=== PATIENT | female | born 1990 | race Caucasian/White ===

== ENCOUNTER 2019-07-15 09:02 | Outpatient (CLI) | payer OTHER, MEDICAID, SELFPAY ==
[2019-07-15 09:19] VITALS: BP 126/80; PULSE 90
[2019-07-15 09:20] VITALS: RESP 16; TEMP 36.8
[2019-07-15 09:28] VITALS: BMI 34.2
[2019-07-15 09:50] LABS: Basophils % 0.3 %; Eosinophils # 0.1 10^3/uL (0.0-0.8); Eosinophils % 0.8 %; Hematocrit 33.5 % (37.0-47.0); Lymphocytes # 1.5 10^3/uL (0.8-4.8); Lymphocytes % 14.4 %; Mean Corpuscular HGB Conc 32.8 g/dL (30.0-36.0); Mean Corpuscular Hemoglobin 31.7 pg (28.0-34.0); Mean Corpuscular Volume 96.5 fL (81-99); Mean Platelet Volume 10.7 fL (7.4-10.4); Monocytes # 0.8 10^3/uL (0.2-0.9); Monocytes % 7.2 %; Neutrophils # 8.1 10^3/uL (1.8-7.7); Neutrophils % 76.6 %; Nucleated Red Blood Cells % 0 %; Platelet Count 182 10^3/cmm (130-400); Red Blood Count 3.47 10^6/uL (4.1-5.3); Red Cell Distribution Width 12.9 % (12.1-15.1); White Blood Count 10.5 10^3/uL (4.0-10.0)
[2019-07-15 10:06] LABS: Alanine Aminotransferase 11 U/L (0-33); Albumin Level 3.8 g/dL (3.5-5.2); Alkaline Phosphatase 132 IU/L (35-105); Anion Gap 16.6 (5-19); Aspartate Amino Transferase 17 U/L (0-32); Blood Urea Nitrogen 8 mg/dL (6-20); Calcium 9.2 mg/dL (8.5-10.5); Carbon Dioxide 20 mmol/L (22-29); Chloride 101 mmol/L (98-107); Globulin 2.2 g/dL (1.3-4.6); Glomerular Filtration Rate 144.9 mL/min (90-130); Glucose 132 mg/dL (74-109); Potassium 3.6 mmol/L (3.5-5.1); Sodium 134 mmol/L (136-145); Total Bilirubin 0.3 mg/dL (0.15-1.2); Uric Acid 3.9 mg/dL (2.4-5.7)
[2019-07-15 10:07] LABS: Urine Creatinine 123 mg/dL (28-217); Urine Protein Random 15 mg/dL
[2019-07-15 10:11] VITALS: BP 0/0
[2019-07-15 10:12] VITALS: BP 121/68; PULSE 75
[2019-07-15 10:13] LABS: UPRO/UCREAT Ratio 0.12 mg/mg CR
[2019-07-15 10:22] VITALS: BP 121/68; PULSE 86; RESP 16; TEMP 36.8
== END 2019-07-15 10:20 | disposition home or self-care (01) ==
LOC: OPOB 09:12 → OBGYN 10:14 → OPOB 07-17 13:29
PROVIDERS: Family Provider Family Medicine; PCP Family Medicine; Visit Provider Family Medicine
DX: O36.8390 Maternal care for abnormalities of the fetal heart rate or rhythm, unspecified trimester, not applicable or unspecified (principal); Z3A.00 Weeks of gestation of pregnancy not specified
CPT/HCPCS: 36415; 59025; 80053; 82570; 84156; 84550; 85025; 99211; A9270

== ENCOUNTER 2019-07-19 15:00 | Outpatient (CLI) | payer OTHER, MEDICAID, SELFPAY ==
[2019-07-19] VITALS (7 sets, daily range): BP systolic 106–119; BP diastolic 65–76; PULSE 80–90; RESP 18; TEMP 36.4; BMI 34.2
--- NOTE | 2019-07-19 15:17 | US_ITS ---
WS: [id number] OB ultrasound for biophysical profile, 07/19/2019 Clinical Data: ELEVATED B/P Comparison: OB ultrasound, 03/18/2019 Findings: There is a single intrauterine in the vertex presentation. The heart rate is 126 beat s per minute. The cervical length is 4.2 and it is closed. The placenta is posterior and grade 2. The biophysical profile is 8 of 8 with normal scores for breathing, movement, posture and tone and amniotic fluid volume. US/US OB lmt w/ BPP wo NST Impression: 1. Single intrauterine in vertex presentation. 2. Biophysical profile 8 of 8. 3. heart rate 126 beats per minute.
== END 2019-07-19 16:15 | disposition home or self-care (01) ==
LOC: OPOB 15:04
PROVIDERS: Family Provider Family Medicine; PCP Family Medicine; Visit Provider Family Medicine
DX: O24.419 Gestational diabetes mellitus in pregnancy, unspecified control (principal); Z3A.00 Weeks of gestation of pregnancy not specified
CPT/HCPCS: 59025; 76815; 76819; 99211

== ENCOUNTER 2019-07-22 14:34 | Outpatient (CLI) | payer OTHER, MEDICAID, SELFPAY ==
[2019-07-22 15:02] VITALS: BP 118/70; BP 122/80; PULSE 83; PULSE 90; RESP 16; RESP 17; TEMP 36.8
--- NOTE | 2019-07-22 15:42 | PC.NURSE ---
Taken at 1441, unable to chart at correct time due to admission times incorrect
--- NOTE | 2019-07-22 16:30 | PC.NURSE ---
Taken at 1456. Unable to document at correct time due to admissions incorrect time.
[2019-07-22 16:35] VITALS: BMI 34.2
== END 2019-07-22 15:05 | disposition home or self-care (01) ==
LOC: OPOB 17:30
PROVIDERS: Family Provider Family Medicine; PCP Family Medicine; Visit Provider Family Medicine
DX: O16.9 Unspecified maternal hypertension, unspecified trimester (principal); Z3A.00 Weeks of gestation of pregnancy not specified
CPT/HCPCS: 59025; 99211

== ENCOUNTER 2019-07-25 09:41 | Outpatient (CLI) | payer OTHER, MEDICAID, SELFPAY ==
--- NOTE | 2019-07-25 10:12 | US_ITS ---
WS: [id number] ULTRASOUND OB LIMITED TECHNIQUE: Limited ultrasound examination of the fetus. CLINICAL INFORMATION: SUPERVISION OF HIGH RISK /GESTATIONAL HTN COMPARISON: July 19, 2019 FINDINGS: Cervix measures 4.0 CM Single interuterine gestation. presentation is vertex Placental location is posterior. Placenta grade: 2 heart rate 126 BPM. Normal MURTAZA 18.26 cm Gestational age 38 weeks 3 days Biophysical profile 8 out of 8. breathin movement: 2 tone: 2 Amniotic fluid: 2 IMPRESSION Normal biophysical profile 8 out of 8
== END 2019-07-25 09:42 | disposition home or self-care (01) ==
LOC: RAD 09:46
PROVIDERS: Family Provider Family Medicine; PCP Family Medicine; Visit Provider Family Medicine
DX: O09.93 Supervision of high risk pregnancy, unspecified, third trimester (principal); O13.9 Gestational [pregnancy-induced] hypertension without significant proteinuria, unspecified trimester
CPT/HCPCS: 76816; 76819

== ENCOUNTER 2019-07-26 09:20 | Outpatient (CLI) | payer OTHER, MEDICAID, SELFPAY ==
[2019-07-26 09:20] VITALS: BMI 34.2
[2019-07-26 09:47] VITALS: BP 119/74; PULSE 73
[2019-07-26 09:51] VITALS: RESP 16; TEMP 37
[2019-07-26 10:02] VITALS: BP 105/67; PULSE 70
[2019-07-26 10:12] VITALS: BP 105/67; PULSE 70; RESP 16; TEMP 37
== END 2019-07-26 10:10 | disposition home or self-care (01) ==
PROVIDERS: Family Provider Family Medicine; PCP Family Medicine; Visit Provider Family Medicine
DX: O16.9 Unspecified maternal hypertension, unspecified trimester (principal); Z3A.00 Weeks of gestation of pregnancy not specified
CPT/HCPCS: 59025

== ENCOUNTER 2019-07-29 06:10 | Inpatient (IN) | payer OTHER, MEDICAID, SELFPAY ==
[2019-07-29] VITALS (96 sets, daily range): BP systolic 0–140; BP diastolic 0–85; PULSE 58–83; RESP 16–17; TEMP 36.6–37; O2SAT 97–99; BMI 33.8
--- NOTE | 2019-07-29 06:42 | P.HP_ITS ---
Providers/Chief Complaint Admitting Physician: Babar Claire MD Primary Care Provider: Quoc Dwyer MD Chief Complaint: Induction History of Present Illness Mary Carmen Meraz is a 29 year old at 39.0 weeks gestation by LMP consistent with 8-week ultrasound. Her is complicated by smoking during first trimester, history of asthma, history of kidney stone, gestational hypertension without severe features. The patient presents to labor and delivery for a scheduled induction of labor secondary to elevating blood pressures. Her blood pressures have been in the 1 30s to 140s systolic over 80s to 90s diastolic. She is not had any headaches, flashes of light, nausea, vomiting, chest pains, shortness of breath, abdominal pain, leakage of fluid, vaginal bleeding, dysuria. In the clinic the patient's total urine protein 1 week ago was 290. Medications/Allergies Allergies Allergy/AdvReac Type Severity Reaction Status Date / Time No Known Allergies Allergy Verified 07/26/19 09:53 PFSH Acute PFSH: Statuses (acute, chronic, etc) shown below reflect problem list status as previously entered and may not be historically accurate Medical History (Updated 07/29/19 @ 06:44 by Babar Claire MD) History of asthma (Acute) History of kidney stones (Acute) Vitals/I&O/Wt Last Vital Signs Pulse 83 07/29/19 06:33 BP 140/83 07/29/19 06:33 Physical Exam Narrative: EXAM NARRATIVE: General: Alert and oriented x3 Eyes: Pupils equal round and reactive to light and accommodation Mouth: Mucous membranes moist, pharynx non-erythematous Cardiac: Regular rate and rhythm without murmurs Lungs: Clear to auscultation bilaterally without wheezes, crackles or rhonchi Abdomen: Soft, non-tender, fundus consistent with gestational age Extremities: Trace edema in the bilateral lower extremities A&P Additional A&P Information The patient is currently doing well at this time. She is 3 cm dilated with 50% effacement upon admission. The patient is having contractions every 5 to 7 minutes. heart tones are in the 140s with moderate variability and good accelerations with a category 1 tracing. Initial blood pressure is 140/83. The patient does not show any signs of severe features from gestational hypertension. We will watch for any signs of complications with elevating blood pressures. We will plan to induce using IV Pitocin. The patient is GBS negative. All questions were answered. The patient and her are in agreement with the current plan of care. Proceed with induction of labor scheduled. Attestations Medical Necessity Statement*: The patient will be here for greater than 2 midnights due to routine intrapartum and management of labor and delivery. Coding Level of Care Code Acute Instructional Support Assistant for Trish Dubose
[2019-07-29] MEDS: oxytocin 30 UNIT/500 ML BAG 4 UNIT IV (07:45)
[2019-07-29] MEDS: dextrose 5%-lactated ringers 1,000 ML 125 ML IV (07:45)
[2019-07-29 07:54] LABS: Basophils % 0.1 %; Eosinophils # 0.1 10^3/uL (0.0-0.8); Eosinophils % 1.1 %; Hematocrit 32.7 % (37.0-47.0); Hemoglobin 10.8 g/dL (11.5-15.3); Lymphocytes # 1.9 10^3/uL (0.8-4.8); Lymphocytes % 22.1 %; Mean Corpuscular Hemoglobin 31.4 pg (28.0-34.0); Mean Corpuscular Volume 95.1 fL (81-99); Mean Platelet Volume 11.1 fL (7.4-10.4); Monocytes # 0.7 10^3/uL (0.2-0.9); Monocytes % 8.1 %; Neutrophils # 5.7 10^3/uL (1.8-7.7); Neutrophils % 67.3 %; Nucleated Red Blood Cells % 0 %; Platelet Count 175 10^3/cmm (130-400); Red Blood Count 3.44 10^6/uL (4.1-5.3); Red Cell Distribution Width 12.7 % (12.1-15.1); White Blood Count 8.4 10^3/uL (4.0-10.0)
[2019-07-29] MEDS: lactated ringers 1,000 ML 999 ML IV ×3 (12:01→14:24)
--- NOTE | 2019-07-29 13:37 | P.ANESASSM_ITS ---
Pre-Anesthetic Assessment Pre-Anesthetic Assessment: Height/Weight: Height 1.57 m Weight 83.915 kg Pulse Resp BP Pulse Ox 62 17 119/67 98 07/29/19 13:35 07/29/19 07:00 07/29/19 13:35 07/29/19 13:23 Preop Diagnosis: IUP Proposed Procedure: Epidural Last Intake: 08:00 Social: Social History: No alcohol and No tobacco Exam: Pre-Anes Outpt Exam: alert, oriented x 3, clear to auscultation bilaterally and regular rate & rhythm Airway: Submandibular: WNL Cervical ROM: WNL MP: 2 Dentition: Full History/ROS: No significant history except as noted and No significant complaints Pulmonary: Pulmonary: Asthma CV/HEM: CV/HEM: None reported : : None reported Hepatic: Hepatic: None reported GI: GI: None reported Metabolic: Metabolic: None reported Musc/skel: Musc/skel: None reported Neuropsych: Neuropsych: None reported Anesthetic Plan: ASA status: 2 Anesthesia: Anesthesia Evaluation and Regional (specify below) Other: Epidural Risk of > 500 ml blood loss (7ml/kg in children): No Meds/Allergies Current Medications: Current Medications Generic Name Dose Route Start Last Admin Trade Name Freq PRN Reason Stop Dose Admin Lactated Ringer's 1,000 mls @ 999 m ls/hr 07/29/19 06:48 07/29/19 12:01 Lactated Ringers IV 999 mls/hr .Q1H1M PRN Administration Per L&D Rescitati on Protocol Oxytocin 30 unit in 500 ml s @ 1 mls/hr 07/29/19 07:00 07/29/19 10:17 Pitocin IV 20 milliunit/min .Q24H DEVYN 20 mls/hr Titration Protocol 1 MILLIUNIT/MIN Dextrose/Lactated Ringer's 1,000 mls @ 125 m ls/hr 07/29/19 07:00 07/29/19 07:45 Dextrose 5%-Lact ated Ringers IV 125 mls/hr .Q8H DEVYN Administration PFSH Anesthesia PFSH: Medical History (Updated 07/29/19 @ 06:44 by Babar Claire MD) History of asthma (Acute) History of kidney stones (Acute) Female Reproductive History: : 3 Data Anesthesia CBC & Chem 7: 07/29/19 07:44 Other Labs: Laboratory Results - last 48 hr 07/29/19 07:44 WBC 8.4 RBC 3.44 L Hgb 10.8 L Hct 32.7 L MCV 95.1 MCH 31.4 MCHC 33.0 RDW 12.7 Plt Count 175 MPV 11.1 H Neut % (Auto) 67.3 Lymph % (Auto) 22.1 Blanco % (Auto) 8.1 Eos % (Auto) 1.1 Baso % (Auto) 0.1 Neut # (Auto) 5.7 Lymph # (Auto) 1.9 Blanco # (Auto) 0.7 Eos # (Auto) 0.1 Baso # (Auto) 0.0 Nucleated RBC % (auto) 0 Nucleated RBCs # 0.0 Cardiac Studies: No Data to Display
--- NOTE | 2019-07-29 13:41 | ANES.PROC ---
Anesthesia Procedures Procedure/Date: 07/29/19 Epidural: Time Out Performed: Yes Consents Signed: Procedure Consent and No Consent Needed Consent: requested by attending/covering physician Lumbar Level: L2-L3 Epidural position: sitting Epidural procedure: sterile prep of area, 1% lidocaine to numb the area, 18 g needle, neg for paresthesia, test dose given, 1.5% xylocaine 1:200k epi, placed PCEA, no systemic response, sterile dressing applied, L.U.D. no apparent complications and 0.2% Ropiavacaine @ mls/hr Additional Comments: 1326 Bolus Bupiv 0.25% 8 cc and Fentanyl 100 mcg. Patient tolerated well
[2019-07-29] MEDS: ePHEDrine 50 mg/mL Inj 10 MG IVP (14:23)
[2019-07-29] MEDS: ondansetron 2 mg/ML SDV 2 mL 4 MG IVP (14:29)
--- NOTE | 2019-07-29 18:15 | P.PCNOB_ITS ---
Delivery Note: Date of delivery: July 29, 2019 Pre-delivery diagnoses: 1. Intrauterine at 39.0 weeks gestation 2. Gestational hypertension without severe features 3. Smoker during 4. History of asthma Post-delivery diagnoses: 1. Intrauterine status post spontaneous vaginal delivery at 39.0 weeks gestation 2. Gestational hypertension without severe features 3. Smoker during 4. History of asthma 5. Delivery of healthy male weighing 7 pounds 2 ounces with Apgars of 8 and 9 Procedure: Spontaneous vaginal delivery Op report anesthesia: Epidural Delivering Physician: Babar Claire MD Estimated blood loss (mL): 150 Findings: 1. Delivery of healthy male weighing 7 pounds 2 ounces with Apgars of 8 9 2. Intact placenta with a central umbilical cord insertion site. Pre-Delivery Course: The patient was admitted to labor and delivery on the morning of 07/29/2019 for induction of labor at 39.0 weeks secondary to gestational hypertension. The patient was 3 cm dilated upon admission and was started on IV Pitocin. The patient made gradual change with this and stalled out at approximately 5 to 6 cm. For this reason AROM was performed at 1608 on 07/29/2019. There was an abundant amount of clear fluid. The patient continued to make change at that point and was complete by approximately 1740. There were some intermittent late decelerations and these were improved with fluid boluses, position changes and 1 dose of ephedrine after her epidural. Delivery: The mother began pushing at 1749 on 07/29/2019. She pushed well and the infant delivered in the OA position at 1751 on 07/29/2019. A tight nuchal cord was present. It could not be reduced easily and the was coming quickly. The left shoulder was the anterior shoulder and it delivered with ease. Rest of the infant delivered without complication. The nuchal cord was reduced and the 's mouth and nose were bulb suctioned by myself. The infant was placed on the mother's chest where the nurses were waiting to care for him. The cord was clamped by myself after approximately 1 minute. The cord was then cut by the 's father. Cord blood was obtained and the cord was then drained of blood. The uterus was massaged and the placenta delivered without complication at 1755 on 07/29/2019. The placenta was noted to be intact with a central umbilical cord insertion site. The cervix was inspected and there were no lacerations. The vaginal wall was inspected and there was a small abrasion in the perineal area that was not bleeding and did not need suturing. There was some mild to moderate bleeding initially, however with uterine massage and IV Pitocin this has improved. Currently both the mother and are doing very well. Coding Level of Care Code Acute Market Research Worker for Trish Dubose
[2019-07-30 01:50] VITALS: BP 114/72; PULSE 71; RESP 16; O2SAT 98
[2019-07-30] MEDS: acetaminophen 325 mg Tablet 650 MG PO (02:00)
--- NOTE | 2019-07-30 02:29 | PC.NURSE ---
PATIENT REPORTS PAIN AT 1 ON 1-10 PAIN SCALE AFTER RECEIVING TYLENOL
[2019-07-30 03:50] VITALS: BP 119/78; PULSE 70; RESP 16; TEMP 36.8
[2019-07-30 06:53] LABS: Hematocrit 29.2 % (37.0-47.0); Hemoglobin 9.5 g/dL (11.5-15.3); Mean Corpuscular HGB Conc 32.5 g/dL (30.0-36.0); Mean Corpuscular Volume 92.1 fL (81-99); Mean Platelet Volume 10.5 fL (7.4-10.4); Platelet Count 155 10^3/cmm (130-400); Red Blood Count 3.17 10^6/uL (4.1-5.3); Red Cell Distribution Width 12.6 % (12.1-15.1); White Blood Count 9.3 10^3/uL (4.0-10.0)
[2019-07-30 08:23] VITALS: BP 123/76; PULSE 76; RESP 15
[2019-07-30] MEDS: benzocaine-menthol 78 gm Canister 1 SPRAY TOPICAL (09:33)
[2019-07-30] MEDS: lanolin oint 7 gm 1 APPLIC TOPICAL (09:34)
[2019-07-30] MEDS: prenatal vitamin Capsule 1 CAP PO (09:34)
[2019-07-30] MEDS: docusate sodium 100 mg Capsule PO ×2 (09:34→18:51)
--- NOTE | 2019-07-30 09:40 | PM.DCS ---
Discharge Providers Date of Admission: 07/29/19 06:10 Date of Discharge: Date of Discharge: July 30, 2019 Attending Provider at Admission: Babar Claire MD Attending Provider at Discharge: Babar Claire MD Primary Care Provider: Quoc Dwyer MD Diagnoses at Discharge Discharge Diagnosis (1) Intrauterine : Status: Acute Other Information Additional DC diagnoses/information: 1. Intrauterine status post spontaneous vaginal delivery at 39.0 weeks gestation 2. Gestational hypertension without severe features 3. Smoker during 4. History of asthma 5. Delivery of healthy male weighing 7 pounds 2 ounces with Apgars of 8 and 9 Reason for Visit Reason for Visit: Reason For Visit: Induction Hospital Course Hospital Course: Pre-Delivery Course: The patient was admitted to labor and delivery on the morning of 07/29/2019 for induction of labor at 39.0 weeks secondary to gestational hypertension. The patient was 3 cm dilated upon admission and was started on IV Pitocin. The patient made gradual change with this and stalled out at approximately 5 to 6 cm. For this reason AROM was performed at 1608 on 07/29/2019. There was an abundant amount of clear fluid. The patient continued to make change at that point and was complete by approximately 1740. There were some intermittent late decelerations and these were improved with fluid boluses, position changes and 1 dose of ephedrine after her epidural. Delivery: The mother began pushing at 1749 on 07/29/2019. She pushed well and the infant delivered in the OA position at 1751 on 07/29/2019. A tight nuchal cord was present. It could not be reduced easily and the was coming quickly. The left shoulder was the anterior shoulder and it delivered with ease. Rest of the delivered without complication. The nuchal cord was reduced and the 's mouth and nose were bulb suctioned by myself. The was placed on the mother's chest where the nurses were waiting to care for him. The cord was clamped by myself after approximately 1 minute. The cord was then cut by the 's father. Cord blood was obtained and the cord was then drained of blood. The uterus was massaged and the placenta delivered without complication at 1755 on 07/29/2019. The placenta was noted to be intact with a central umbilical cord insertion site. The cervix was inspected and there were no lacerations. The vaginal wall was inspected and there was a small abrasion in the perineal area that was not bleeding and did not need suturing. There was some mild to moderate bleeding initially, however with uterine massage and IV Pitocin this has improved. Currently both the mother and are doing very well. course: The patient is doing very well and has had no complications with bleeding. Her pain is been well controlled. She is ambulating, voiding, passing gas and tolerating food by mouth. She has no concerns and routine care instructions were given. The patient will be discharged today and we will plan for follow-up at 6 weeks or sooner if needed. Physical Exam Narrative: EXAM NARRATIVE: General: Alert and oriented x3 Cardiac: Regular rate and rhythm without murmurs Lungs: Clear to auscultation bilaterally without wheezes, crackles or rhonchi Abdomen: Soft, uterus is firm and 4 cm below the umbilicus. Extremities: trace edema Discharge Data Data Completed and Pending: Labs from last 24 hours 07/30/19 06:40 WBC 9.3 RBC 3.17 L Hgb 9.5 L Hct 29.2 L MCV 92.1 MCH 30.0 MCHC 32.5 RDW 12.6 Plt Count 155 MPV 10.5 H Vitals: Last Vital Signs Temp 98.3 F 07/30/19 03:50 Pulse 76 07/30/19 08:23 Resp 15 07/30/19 08:23 BP 123/76 07/30/19 08:23 Pulse Ox 98 07/30/19 01:50 Discharge Plan Discharge Patient Disposition: Home, Self-Care Condition: Good Prescriptions: New ibuprofen 800 mg Tablet 800 mg PO TID Qty: 60 RF: 0 -U 106.5-1 mg Capsule 1 cap PO DAILY Qty: 30 RF: 3 ferrous sulfate 325 mg (65 mg iron) tablet 325 mg PO BID Qty: 30 RF: 0 Discharge Orders: Discharge Order (Routine); Ordered 07/30/19 Ordered By: Babar Claire Referrals: Sukumar Holguin MD [Physician] - 6 Weeks (Colposcopy) Babar Claire MD [Family Provider] - 6 Weeks Discharge Diet: Regular Discharge Activity: Resume usual activity Activity Restrictions/Additional Instructions: Nothing per vagina for 6 weeks. Discharge Attestations Time Spent in Discharge Care*: less than 30 min Quality Metrics Clinical Quality Measures During this hospital stay, did patient experience: None Coding Level of Care Code Acute Paper Guillotine Operator for Chg Fwd Diagnoses Intrauterine Z34.90
[2019-07-30 09:41] VITALS: BP 110/75; PULSE 73; RESP 17; TEMP 36.6
[2019-07-30 15:47] VITALS: BP 115/76; PULSE 66; RESP 17; TEMP 37.1
[2019-07-30 20:00] VITALS: BP 113/76; PULSE 71; RESP 16; TEMP 36.8
== END 2019-07-30 20:05 | disposition home or self-care (01) | DRG 807 ==
PROVIDERS: Admitting Provider Family Medicine; Family Provider Family Medicine; PCP Family Medicine; Visit Provider Family Medicine
DX: O13.4 Gestational [pregnancy-induced] hypertension without significant proteinuria, complicating childbirth (principal); Z37.0 Single live birth; Z3A.39 39 weeks gestation of pregnancy; O99.334 Smoking (tobacco) complicating childbirth; F17.210 Nicotine dependence, cigarettes, uncomplicated; O69.81X0 Labor and delivery complicated by cord around neck, without compression, not applicable or unspecified
CPT/HCPCS: 12345; 36415; 51702; 59409; 85025; 85027; 96374; 96375; J2405; J3010; J3490

== ENCOUNTER → 2019-09-27 08:48 | Outpatient (BNVA) | payer OTHER, MEDICAID, SELFPAY | PROVIDERS: Family Provider Family Medicine; PCP Family Medicine; Visit Provider Obstetrics & Gynecology | DX: R87.619 Unspecified abnormal cytological findings in specimens from cervix uteri (principal) | CPT/HCPCS: 81025; 88175 ==

== ENCOUNTER → 2019-09-28 09:20 | Outpatient (BNVA) | payer OTHER, MEDICAID, SELFPAY | PROVIDERS: Family Provider Family Medicine; PCP Family Medicine; Visit Provider Obstetrics & Gynecology | DX: R87.619 Unspecified abnormal cytological findings in specimens from cervix uteri (principal) | CPT/HCPCS: 88305 ==

== ENCOUNTER 2020-05-15 09:37 | Emergency (ER) | payer MEDICAID, SELFPAY ==
[2020-05-15 09:45] VITALS: BP 122/78; PULSE 76; RESP 16; TEMP 36.8; O2SAT 100; BMI 28.3
[2020-05-15 09:51] VITALS: PULSE 78; RESP 16; O2SAT 95
--- NOTE | 2020-05-15 10:01 | XR_ITS ---
WS: [id number] PORTABLE CHEST HISTORY: syncope COMPARISON: None available. Lungs are clear and well expanded. No pleural effusion or pneumothorax. Cardiac size: Normal. Mediastinum/Aorta: Normal mediastinum. No osseous abnormality seen. XR/XR chest 1V portable [id number] IMPRESSION: Unremarkable portable chest.
--- NOTE | 2020-05-15 10:01 | W.ED.CHESTPA ---
HPI - Chest Pain General: Chief Complaint: Chest Pain Stated Complaint: chest pain Time Seen by Provider: 05/15/20 09:41 Source: patient Mode of arrival: ambulatory Limitations: no limitations History of Present Illness: HPI narrative: Pleasant 29-year-old female patient presents to the emergency department with 2-day history of sharp pain to the central chest. She reports that pain started yesterday, sudden onset, was at rest when occurred. Pain is not affiliated with eating or drinking. She denies fever chills, no recent surgeries. She is a smoker. She denies deviation of cough from baseline. She reports sharp pain with inspiration, located in the central chest. She she reports history of preeclampsia with , delivery normal and uneventful July 2019. She denies pain of the right shoulder, pain with movement. She was seen by her primary care yesterday with suggestion rib may have been out of place and to seek further follow-up if pain persisted. States took ibuprofen this morning, pain scale 10/10; pain is 7 out of 10 currently. MD complaint: chest pain and chest discomfort Onset (ago): day(s) (2) Timing of current episode: constant Prior episodes: No Onset: during rest and awoke with symptoms Pain location: parasternal Pain radiation: back Severity: moderate Quality: sharp and shooting Relieving factors: nothing Exacerbating factors: nothing Associated symptoms: Reports dyspnea (with inspiration); Deny abdominal pain, diaphoresis, fever(s), nausea, palpitations or vomiting Treatment prior to arrival: other (IBU) Review of Systems General: Reports: 10 or more systems reviewed and unremarkable except in HPI and below Const: Denies: fever(s), chills or diaphoresis Eyes: Denies: blurry vision or eye redness ENMT: Denies: throat pain, dental pain or disequilibrium Card: Reports: chest pain; Denies: palpitations or irregular heart rhythm Resp: Reports: dyspnea (with inspiration) and pain on inspiration; Denies: productive cough, non-productive cough, wheezing or chest congestion GI: Denies: abdominal pain, nausea, vomiting, heartburn, diarrhea, belching or excessive flatus : Denies: difficulty voiding or dysuria Musc: Reports: back pain; Denies: neck pain, joint pain, joint warmth or joint stiffness Skin/Breast: Denies: rash, pruritus, skin tenderness or changes in skin color Neuro: Denies: headache(s), weakness in extremities or behavioral changes Psych: Denies: anxiety or depression Ignacio/Lymph: Denies: easy bruising PFSH ED PFSH: Medical History (Updated 05/15/20 @ 11:36 by JERRY Mccord) No pertinent past medical history Patient denies history of PE/DVT/clotting disorders, lung, liver heart, thyroid, kidney disease, hypertension or diabetes. PCP Dr. Dwyer Surgical History H/O myringotomy As an infant Family History Denies family history of Colon cancer Ovarian cancer Diabetes Heart disease Hyperlipidemia Breast cancer Hypertension Uterine cancer Thyroid condition Stroke Social History (Updated 05/15/20 @ 09:52 by Paul Gorman RN) Smoking and tobacco status: light tobacco smoker Alcohol intake: never Additional social history: - Tobacco Use: Patient started smoking at age 16 and smoked 5-6 cigarettes daily until she found out she was and started cutting back. Currently smoking 1-2 cigarettes daily. Alcohol Use: Denies Drug Use: Denies Work/Study Status: Stay at home mother Physical Exam Const: COMMON NORMALS: no acute distress, patient oriented x3, healthy appearing and alert GENERAL APPEARANCE: cooperative, comfortable and well hydrated HENMT: COMMON NORMALS: normocephalic, Normal external nose present and moist oral mucous membranes HEAD & SCALP: normocephalic NOSE: Normal external nose present Eye: COMMON NORMALS: Equal, round and reactive pupils present and EOMs intact bilaterally GENERAL EYE: appearance normal, both eyes and all related structures PUPIL: Yes Equal, round and reactive pupils present Neck/C-Spine: COMMON NORMALS: full ROM and no lymphadenopathy GENERAL: Yes normal visual inspection and Yes trachea midline CERVICAL SPINE: Yes cervical ROM normal Lymph: LYMPHATIC: no lymphadenopathy noted Chest: COMMONS NORMALS: normal inspection of the chest and normal palpation of entire chest wall CHEST: No localized rib tenderness with anteroposterior compression Resp: COMMON NORMALS: normal respiratory effort, No retractions, No use of accessory muscles and clear to auscultation bilaterally EFFORT & INSPECTION: Yes able to speak in complete sentences AUSCULTATION: clear to auscultation bilaterally and diminished lung sounds on the right in the upper lung hodges Cardio: COMMON NORMALS: regular rhythm, S1 normal heart sound present, S2 normal heart sound present and Peripheral pulses 2+ throughout RHYTHM: regular rhythm HEART SOUNDS: S1 normal heart sound present and S2 normal heart sound present PERIPHERAL PULSES: Peripheral pulses 2+ throughout GI: COMMON NORMALS: Normal to inspection, nondistended, normoactive bowel sounds present, Soft to palpation and non-tender INSPECTION: Yes normal to inspection AUSCULTATION: Yes normoactive bowel sounds PALPATION: Yes Soft to palpation, No Hepatosplenomegaly present, No Rebound tenderness present and Yes Other GI palpation findings present (Negative Wolf's, negative McBurney's) : COMMON NORMALS: Yes no CVA tenderness BLADDER/KIDNEY EXAM: Yes no CVA tenderness Back/Pelvis: COMMON NORMALS: no CVA tenderness and thoracic and lumbar spine normal to inspection Extremity: COMMON NORMALS: normal to inspection and capillary refill normal Neuro: COMMON NORMALS: patient oriented x3 and no focal motor deficits SENSORIUM/ORIENTATION: Yes alert SPEECH: speech normal GAIT: Yes Normal gait present MOTOR EXAM: 5/5 motor strength present throughout Psych: COMMON NORMALS: mental status grossly normal, Normal thought process present and cooperative ACTIVITY/MOTOR BEHAVIOR: Yes appropriate eye contact THOUGHT PROCESS: Normal thought process present Skin: COMMON NORMALS: no rashes or lesions noted and turgor normal GENERAL SKIN EXAM: no rashes or lesions noted and turgor normal Course ED course: 29-year-old female patient presents to the emergency department with complaints of sharp pain with inspiration. Troponin negative, ECG without acute process, white blood count slightly elevated, CRP and ESR elevated. Procalcitonin low. Reports use of methylprednisone several months ago and has never quite gotten over cough and congestion, respiratory illness she experienced then. She continues to smoke, question chronic bronchitis, will test for Covid due to elevation of inflammatory markers, agrees to initiate Augmentin if Covid testing negative. Agrees to return to the emergency department if she develops increased chest pain associated with nausea vomiting or inability to catch her breath. She reports history of albuterol use in the past. Agrees to follow-up with her primary care provider next week if not improved. Vital Signs: Vital signs: Vital Signs Temperature 98.3 F 05/15/20 09:45 Pulse Rate 78 05/15/20 09:51 Respiratory Rate 16 05/15/20 10:18 Blood Pressure 122/78 05/15/20 09:45 Pulse Oximetry 97 05/15/20 10:18 MDM - Chest Pain Lab Data: Labs: Lab Results 05/15/20 05/15/20 05/15/20 Range/Units 09:57 09:57 09:57 WBC 13.0 H (4.0-10.0) 10^3/ uL RBC 4.47 (4.1-5.3) 10^6/u L Hgb 13.6 (11.5-15.3) g/dL Hct 42.1 (37.0-47.0) % MCV 94.2 (81-99) fL MCH 30.4 (28.0-34.0) pg MCHC 32.3 (30.0-36.0) g/dL RDW 13.4 (12.1-15.1) % Plt Count 236 (130-400) 10^3/c mm MPV 10.3 (7.4-10.4) fL Neut % (Auto) 72.3 % Lymph % (Auto) 17.2 % Newberry % (Auto) 9.6 % Eos % (Auto) 0.2 % Baso % (Auto) 0.4 % Neut # (Auto) 9.36 H (1.8-7.7) 10^3/u L Lymph # (Auto) 2.2 (0.8-4.8) 10^3/u L Newberry # (Auto) 1.3 H (0.2-0.9) 10^3/u L Eos # (Auto) 0.0 (0.0-0.8) 10^3/u L Baso # (Auto) 0.1 (0.0-0.1) 10^3/u L Nucleated RBC % (a uto) 0 % Nucleated RBCs # 0.0 /100WBC ESR (0-15) mm/hr D-Dimer 0.29 (0-0.59) ug/mIFE U Sodium 140 (136-145) mmol/L Potassium 3.8 (3.5-5.1) mmol/L Chloride 105 (98-107) mmol/L Carbon Dioxide 21 L (22-29) mmol/L Anion Gap 17.8 (5-19) BUN 17 (6-20) mg/dL Creatinine 0.6 (0.5-0.9) mg/dL GFR Calculation 117.4 (90-130) mL/min Glucose 111 (65-115) mg/dL Calculated Osmolal ity 292 (285-295) mOsm/k g Calcium 9.3 (8.5-10.5) mg/dL Total Bilirubin 0.9 (0.15-1.2) mg/dL AST 13 (0-32) U/L ALT 10 (0-33) U/L Alkaline Phosphata se 80 (35-105) IU/L Troponin T Baselin e (0-10) ng/L C-Reactive Protein 51.4 H (0.0-4.9) mg/L Total Protein 7.2 (6.6-8.7) g/dL Albumin 4.6 (3.5-5.2) g/dL Globulin 2.6 (1.3-4.6) g/dL Lipase 14 (13-60) U/L Procalcitonin (0-0.5) ng/mL HCG, Qual (Negative) 05/15/20 05/15/20 05/15/20 Range/Units 09:57 09:57 09:57 WBC (4.0-10.0) 10^3/ uL RBC (4.1-5.3) 10^6/u L Hgb (11.5-15.3) g/dL Hct (37.0-47.0) % MCV (81-99) fL MCH (28.0-34.0) pg MCHC (30.0-36.0) g/dL RDW (12.1-15.1) % Plt Count (130-400) 10^3/c mm MPV (7.4-10.4) fL Neut % (Auto) % Lymph % (Auto) % Newberry % (Auto) % Eos % (Auto) % Baso % (Auto) % Neut # (Auto) (1.8-7.7) 10^3/u L Lymph # (Auto) (0.8-4.8) 10^3/u L Newberry # (Auto) (0.2-0.9) 10^3/u L Eos # (Auto) (0.0-0.8) 10^3/u L Baso # (Auto) (0.0-0.1) 10^3/u L Nucleated RBC % (a uto) % Nucleated RBCs # /100WBC ESR 18 H (0-15) mm/hr D-Dimer (0-0.59) ug/mIFE U Sodium (136-145) mmol/L Potassium (3.5-5.1) mmol/L Chloride (98-107) mmol/L Carbon Dioxide (22-29) mmol/L Anion Gap (5-19) BUN (6-20) mg/dL Creatinine (0.5-0.9) mg/dL GFR Calculation (90-130) mL/min Glucose (65-115) mg/dL Calculated Osmolal ity (285-295) mOsm/k g Calcium (8.5-10.5) mg/dL Total Bilirubin (0.15-1.2) mg/dL AST (0-32) U/L ALT (0-33) U/L Alkaline Phosphata se (35-105) IU/L Troponin T Baselin e 6 (0-10) ng/L C-Reactive Protein (0.0-4.9) mg/L Total Protein (6.6-8.7) g/dL Albumin (3.5-5.2) g/dL Globulin (1.3-4.6) g/dL Lipase (13-60) U/L Procalcitonin (0-0.5) ng/mL HCG, Qual Negative (Negative) 05/15/20 Range/Units 09:57 WBC (4.0-10.0) 10^3/ uL RBC (4.1-5.3) 10^6/u L Hgb (11.5-15.3) g/dL Hct (37.0-47.0) % MCV (81-99) fL MCH (28.0-34.0) pg MCHC (30.0-36.0) g/dL RDW (12.1-15.1) % Plt Count (130-400) 10^3/c mm MPV (7.4-10.4) fL Neut % (Auto) % Lymph % (Auto) % Newberry % (Auto) % Eos % (Auto) % Baso % (Auto) % Neut # (Auto) (1.8-7.7) 10^3/u L Lymph # (Auto) (0.8-4.8) 10^3/u L Newberry # (Auto) (0.2-0.9) 10^3/u L Eos # (Auto) (0.0-0.8) 10^3/u L Baso # (Auto) (0.0-0.1) 10^3/u L Nucleated RBC % (a uto) % Nucleated RBCs # /100WBC ESR (0-15) mm/hr D-Dimer (0-0.59) ug/mIFE U Sodium (136-145) mmol/L Potassium (3.5-5.1) mmol/L Chloride (98-107) mmol/L Carbon Dioxide (22-29) mmol/L Anion Gap (5-19) BUN (6-20) mg/dL Creatinine (0.5-0.9) mg/dL GFR Calculation (90-130) mL/min Glucose (65-115) mg/dL Calculated Osmolal ity (285-295) mOsm/k g Calcium (8.5-10.5) mg/dL Total Bilirubin (0.15-1.2) mg/dL AST (0-32) U/L ALT (0-33) U/L Alkaline Phosphata se (35-105) IU/L Troponin T Baselin e (0-10) ng/L C-Reactive Protein (0.0-4.9) mg/L Total Protein (6.6-8.7) g/dL Albumin (3.5-5.2) g/dL Globulin (1.3-4.6) g/dL Lipase (13-60) U/L Procalcitonin 0.02 (0-0.5) ng/mL HCG, Qual (Negative) Imaging Data^: CXR: Radiologist's impression: [address] [place] [address] XRay Report Signed Patient: Mary Carmen Meraz Unit #: [id number] : 1990 Age/Sex: 29 / F ADM Date: 05/15/20 Loc: ER Room/Bed: Attending Dr: Ordering Provider/Ordering MD: Nandini Ortiz Date of Service: 05/15/20 Procedure(s): XR chest 1V portable [id number] Accession Number(s): [id number] Report Number: [id number] WS: [id number] PORTABLE CHEST HISTORY: syncope COMPARISON: None available. Lungs are clear and well expanded. No pleural effusion or pneumothorax. Cardiac size: Normal. Mediastinum/Aorta: Normal mediastinum. No osseous abnormality seen. XR/XR chest 1V portable [id number] IMPRESSION: Unremarkable portable chest. Dictated By: Hayely Swanson DO Signed By: Hayley Swanson DO Signed Date/Time: 05/15/20 1031 DD/ 1027 Discharge Plan Discharge Patient Disposition: Home Clinical Impression: Atypical chest pain, Suspected 2019 novel coronavirus infection Condition: Stable Prescriptions: New IBU 800 mg tablet 800 mg PO TID PRN (Reason: pain) Qty: 30 RF: 0 Ventolin HFA 90 mcg/actuation HFA aerosol inhaler 2 puff INHALATION Q4H PRN (Reason: shortness of breath or wheezing) Qty: 18 RF: 0 methylprednisolone 4 mg tablets,dose pack See Rx Instructions .ROUTE .COMPLEX Qty: 21 RF: 0 Augmentin 875-125 mg tablet 1 tab PO BID Qty: 14 RF: 0 No Action norethindrone (contraceptive) [Ortho Micronor] 0.35 mg tablet 0.35 mg PO DAILY RF: 0 Discharge Orders: Discharge Order (Routine); Ordered 05/15/20 Ordered By: Nandini Ortiz Referrals: Quoc Dwyer MD [Primary Care Provider] - Discharge Diet: Usual diet Discharge Activity: Resume usual activity Patient Instructions: Chest Pain (ED), Acute Bronchitis (ED), Viral Syndrome (ED) Activity Restrictions/Additional Instructions: return to the ED if chest pain worsens, or it you develop nausea, vomiting, inability to catch your breath or other concerning symptoms follow up with your doctor next week if not improved. COVID results will be called to you, PLEASE remain in quarantine until results are provided. Prescription of Augmentin, and antibiotic has been supplied. Take Augmentin only if COVID-19 results are negative. Albuterol inhaler has been provided along with methylprednisone. Take medication as prescribed Prescription of ibuprofen has been given, do not take prescribed medication with other [id number] products such as ibuprofen, Advil, Aleve or naproxen products as duplication of therapy can occur. Drink plenty of fluids to stay hydrated. Coding Level of Care Code ED Turnaround Planner for Chg Fwd Exam Comprehensive
--- NOTE | 2020-05-15 10:02 | ECG_ITS ---
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
[2020-05-15 10:10] LABS: Basophils # 0.1 10^3/uL (0.0-0.1); Basophils % 0.4 %; Eosinophils % 0.2 %; Hematocrit 42.1 % (37.0-47.0); Hemoglobin 13.6 g/dL (11.5-15.3); Lymphocytes # 2.2 10^3/uL (0.8-4.8); Lymphocytes % 17.2 %; Mean Corpuscular HGB Conc 32.3 g/dL (30.0-36.0); Mean Corpuscular Hemoglobin 30.4 pg (28.0-34.0); Mean Corpuscular Volume 94.2 fL (81-99); Mean Platelet Volume 10.3 fL (7.4-10.4); Monocytes # 1.3 10^3/uL (0.2-0.9); Monocytes % 9.6 %; Neutrophils # 9.36 10^3/uL (1.8-7.7); Neutrophils % 72.3 %; Nucleated Red Blood Cells % 0 %; Platelet Count 236 10^3/cmm (130-400); Red Blood Count 4.47 10^6/uL (4.1-5.3); Red Cell Distribution Width 13.4 % (12.1-15.1)
[2020-05-15 10:17] LABS: D Dimer 0.29 ug/mIFEU (0-0.59)
[2020-05-15 10:18] VITALS: RESP 16; O2SAT 97
[2020-05-15 10:18] LABS: HCG, Serum Qual Negative (Negative)
[2020-05-15] MEDS: ondansetron 2 mg/ML SDV 2 mL 4 MG IVP (10:18)
[2020-05-15] MEDS: morphine 4 mg/mL SDV 1 mL 2 MG IVP (10:18)
[2020-05-15 10:22] LABS: Alanine Aminotransferase 10 U/L (0-33); Albumin Level 4.6 g/dL (3.5-5.2); Alkaline Phosphatase 80 IU/L (35-105); Anion Gap 17.8 (5-19); Aspartate Amino Transferase 13 U/L (0-32); Blood Urea Nitrogen 17 mg/dL (6-20); C Reactive Protein 51.4 mg/L (0.0-4.9); Calcium 9.3 mg/dL (8.5-10.5); Carbon Dioxide 21 mmol/L (22-29); Chloride 105 mmol/L (98-107); Creatinine Clr Calc Pharmacy 130.8784; Globulin 2.6 g/dL (1.3-4.6); Glomerular Filtration Rate 117.4 mL/min (90-130); Glucose 111 mg/dL (65-115); Lipase 14 U/L (13-60); Osmolality Calculated 292 mOsm/kg (285-295); Potassium 3.8 mmol/L (3.5-5.1); Sodium 140 mmol/L (136-145); Total Bilirubin 0.9 mg/dL (0.15-1.2); Total Protein 7.2 g/dL (6.6-8.7)
[2020-05-15 10:23] LABS: Troponin(5th) Baseline 6 ng/L (0-10)
[2020-05-15 11:20] LABS: Procalcitonin 0.02 ng/mL (0-0.5)
[2020-05-15 11:25] LABS: Erythrocyte Sedimentation Rate 18 mm/hr (0-15)
[2020-05-15] MEDS: ketorolac 30 mg/mL INJ IVP (11:48)
[2020-05-15 11:49] VITALS: BP 128/79; PULSE 75; RESP 18; O2SAT 98
[2020-05-17 11:03] LABS: Quest SARS-CoV-2 RNA NOT DETECTED (NOT DETECTED)
--- NOTE | 2020-05-17 18:07 | PC.NURSE ---
pt contacted and notified and informed of her covid test results
== END 2020-05-15 11:49 | disposition home or self-care (01) ==
PROVIDERS: Emergency Provider Nurse Practitioner Family; PCP Family Medicine
DX: R07.89 Other chest pain (principal); Z20.828 Contact with and (suspected) exposure to other viral communicable diseases; F17.210 Nicotine dependence, cigarettes, uncomplicated
CPT/HCPCS: 12345; 71045; 80053; 83690; 84145; 84484; 84703; 85025; 85378; 85651; 86140; 87635; 93005; 96374; 96375; 99282; 99284; J1885; J2270; J2405

== ENCOUNTER 2021-12-06 07:39 | Outpatient (CLI) | payer BC, MEDICAID, SELFPAY ==
--- NOTE | 2021-12-06 07:45 | US_ITS ---
WS: [id number] OBSTETRICAL ULTRASOUND COMPLETE HISTORY: ANATOMY COMPARISON: 09/11/2021 Single intrauterine gestation in Cephalic presentation. Cervix is Closed and normal length. Cervical length is 4.0 cm. Normal amount of amniotic fluid surrounds the fetus. Placenta: Anterior, no previa or abruption. Placenta grade 0 Heart: 150 BPM. Four chambers are identified. RIGHT and LEFT outflow tracts are unremarkable. Anatomy: Intracranial structures and spine are normal. kidneys, stomach and urinary bladd er are unremarkable. Abdominal wall, three-vessel cord and cord insertion site are normal. 4 extremities are present. profile: Limited. Gender: Female. measurements: BPD = 4.8 cm = 20w3d HC = 18.3 cm = 20w4d AC = 14.7 cm = 20w0d FL = 3.3 cm = 20w3d EFW: 341 g. Biometry is internally concordant. AGA by ultrasound: 20w2d NATIVIDAD by ultrasound: 04/23/2022 US/US OB >= 14 weeks fetus [id number] IMPRESSION: 1. Single intrauterine gestation of 20w2d with an NATIVIDAD of 04/23/2022. Appropria te growth since the first trimester ultrasound. 2. Unremarkable screening survey of anatomy.
== END 2021-12-06 07:40 | disposition home or self-care (01) ==
LOC: RAD 07:40
PROVIDERS: PCP Family Medicine; Visit Provider Family Medicine
DX: Z34.92 Encounter for supervision of normal pregnancy, unspecified, second trimester (principal)
CPT/HCPCS: 76805

== ENCOUNTER → 2022-01-17 08:53 | Outpatient (BNVA) | payer BC, MEDICAID, SELFPAY | PROVIDERS: PCP Family Medicine; Visit Provider Family Medicine | DX: Z34.90 Encounter for supervision of normal pregnancy, unspecified, unspecified trimester (principal); Z34.80 Encounter for supervision of other normal pregnancy, unspecified trimester; N87.0 Mild cervical dysplasia; Z20.828 Contact with and (suspected) exposure to other viral communicable diseases | CPT/HCPCS: 82950 ==

== ENCOUNTER → 2022-02-10 17:25 | Outpatient (BNVA) | payer BC, MEDICAID, SELFPAY | PROVIDERS: PCP Family Medicine; Visit Provider Family Medicine | DX: R30.0 Dysuria (principal) | CPT/HCPCS: 81000; 87086 ==

== ENCOUNTER → 2022-03-03 12:07 | Outpatient (BNVA) | payer BC, MEDICAID, SELFPAY | PROVIDERS: PCP Family Medicine; Visit Provider Family Medicine | DX: Z34.80 Encounter for supervision of other normal pregnancy, unspecified trimester (principal); Z51.81 Encounter for therapeutic drug level monitoring | CPT/HCPCS: 85025 ==

== ENCOUNTER → 2022-03-28 09:35 | Outpatient (BNVA) | payer BC, MEDICAID, SELFPAY | PROVIDERS: PCP Family Medicine; Visit Provider Family Medicine | DX: Z34.90 Encounter for supervision of normal pregnancy, unspecified, unspecified trimester (principal); Z3A.00 Weeks of gestation of pregnancy not specified | CPT/HCPCS: 87077; 87081; 87184 ==

== ENCOUNTER 2022-04-04 09:19 | Outpatient (CLI) | payer BC, MEDICAID, SELFPAY ==
[2022-04-04 09:30] VITALS: BP 121/76; PULSE 93
[2022-04-04 09:35] VITALS: BP 121/76; PULSE 93
[2022-04-04 09:41] VITALS: BMI 36.6
[2022-04-04 09:45] VITALS: BP 112/57; PULSE 90
[2022-04-04 09:48] LABS: Bilirubin Urine Neg (Negative); Blood Urine Neg (Negative); Glucose Urine UA Norm (Normal); Ketones Urine Negative (Negative); Leukocyte Esterase Urine Negative (Negative); Nitrate Urine Negative (Negative); Protein Urine Neg (Negative); Sulfosalicylic Acid Urine Negative (Negative); Urine Appearance Clear (CLEAR); Urine Color Yellow (Yellow); Urobilinogen Urine Norm (Negative); pH Urine 8 (5-7)
[2022-04-04 09:58] LABS: Add Urine Culture? No; Bacteria Urine TRACE /hpf; RBC Urine 0-4 /hpf (0-2); WBC Urine 0-4 /hpf (0-5)
[2022-04-04 10:00] VITALS: BP 101/53; PULSE 83
[2022-04-04 10:15] VITALS: BP 102/57; PULSE 78
[2022-04-04 10:30] VITALS: BP 100/56; PULSE 78
[2022-04-04 10:34] LABS: Amphetamines Screen Urine Negative (Negative); Barbiturates Screen Urine Negative (Negative); Benzodiazepines Screen Urine Negative (Negative); Cocaine Screen Urine Negative (Negative); Opiate Screen Urine Negative (Negative); PCP Screen Urine Negative (Negative); THC Screen Urine Negative (Negative)
== END 2022-04-04 10:41 | disposition home or self-care (01) ==
LOC: OPOB 09:19 → OBGYN 09:20
PROVIDERS: PCP Family Medicine; Visit Provider Family Medicine
DX: O36.8390 Maternal care for abnormalities of the fetal heart rate or rhythm, unspecified trimester, not applicable or unspecified (principal); Z3A.00 Weeks of gestation of pregnancy not specified
CPT/HCPCS: 59025; 80306; 81001; 99211

== ENCOUNTER 2022-04-24 05:55 | Inpatient (IN) | payer BC, MEDICAID, SELFPAY ==
--- NOTE | 2022-04-08 10:40 | P.ANESASSM_ITS ---
Pre-Anesthetic Assessment Height/Weight: Height 1.6 m Preop Diagnosis: IUP Epidural Familial anesthetic complications: None Social No alcohol and No tobacco Exam alert, oriented x 3, clear to auscultation bilaterally and regular rate & rhythm Airway Mallampati: Class II Dentition: full Pulmonary Asthma (childhood - no issues in years. The albuterol in her chart was for an episode of pneumonia several years ago) Anesthetic Plan ASA status: 2 Anesthesia: Regional (specify below) Other: epidural Risk of > 500 ml blood loss (7ml/kg in children): Yes, adequate IV access and fluids planned Medications/Allergies Home Medications Medication Instructions Recorded Confirmed Last Taken Type albuterol sulfate 90 mcg/actuation 2 puff inhalation Q4H PRN 05/15/20 04/04/22 Unknown Rx aerosol inhaler (Ventolin HFA) shortness of breath or wheezing #18 grams ferrous sulfate 325 mg (65 mg 325 mg PO DAILY #30 tabs 03/14/22 04/04/22 04/04/22 Rx iron) tablet Allergies Allergy/AdvReac Type Severity Reaction Status Date / Time No Known Allergies Allergy Verified 10/10/19 13:17 [facility] Anesthesia Medical History No pertinent past medical history Patient denies history of PE/DVT/clotting disorders, lung, liver heart, thyroid, kidney disease, hypertension or diabetes. PCP Dr. Dwyer Surgical History H/O myringotomy As an infant Family History Denies family history of Colon cancer Ovarian cancer Diabetes Heart disease Hyperlipidemia Breast cancer Hypertension Uterine cancer Thyroid condition Stroke Social History (Updated 03/03/22 @ 12:03 by Babar Claire MD) Smoking and tobacco status: light tobacco smoker Quit status (tobacco): has quit using tobacco Alcohol intake: never Additional social history: - Tobacco Use: Patient started smoking at age 16 and smoked 5-6 cigarettes daily until she found out she was and started cutting back. Currently smoking 1-2 cigarettes daily. Alcohol Use: Denies Drug Use: Denies Work/Study Status: Stay at home mother Data Anesthesia Cardiac Studies: No Data to Display
[2022-04-24] VITALS (71 sets, daily range): BP systolic 100–144; BP diastolic 55–99; PULSE 63–131; RESP 15–18; TEMP 36.6–36.9; O2SAT 97–98; BMI 37.0
[2022-04-24] MEDS: dextrose 5%-lactated ringers 1,000 ML 125 ML IV (06:40)
[2022-04-24] MEDS: oxytocin 30 UNIT/500 ML BAG IV (06:41)
[2022-04-24 06:43] LABS: Basophils # 0.1 10^3/uL (0.0-0.1); Basophils % 0.5 %; Eosinophils # 0.1 10^3/uL (0.0-0.8); Hematocrit 31.9 % (37.0-47.0); Hemoglobin 10.5 g/dL (11.5-15.3); Lymphocytes # 1.8 10^3/uL (0.8-4.8); Lymphocytes % 19.3 %; Mean Corpuscular HGB Conc 32.9 g/dL (30.0-36.0); Mean Corpuscular Hemoglobin 31.3 pg (28.0-34.0); Mean Corpuscular Volume 95.2 fl (81-99); Mean Platelet Volume 10.5 fL (7.4-10.4); Monocytes # 0.8 10^3/uL (0.2-0.9); Monocytes % 8.4 %; Neutrophils # 6.45 10^3/uL (1.8-7.7); Neutrophils % 69.2 %; Nucleated Red Blood Cells % 0 %; Platelet Count 168 10^3/cmm (130-400); Red Blood Count 3.35 10^6/uL (4.1-5.3); Red Cell Distribution Width 13.8 % (12.1-15.1); White Blood Count 9.3 10^3/uL (4.0-10.0)
--- NOTE | 2022-04-24 09:11 | PM.HP ---
Providers/Chief Complaint Admitting Physician: Babar Claire MD Primary Care Provider: Quoc Dwyer MD Chief Complaint: EDC 04.26.22 History of Present Illness Mary Carmen Meraz is a 31 year old @ 39.5 weeks by LMP c/w 8 wk US. Preg c/b h/o asthma, h/o kidney stone, h/o gHTN, abnormal pap smear, THC in initial UDS, anemia. The patient presented to labor and delivery for a scheduled elective induction of labor. The patient has been feeling well. She was 4 cm dilated upon presentation. heart tones are in the mid 130s with moderate variability good accelerations. The patient denies any chest pains, shortness of breath, nausea, vomiting, vaginal bleeding, leakage of fluid, dysuria. Medications/Allergies Home Medications Medication Instructions Recorded Confirmed Last Taken Type albuterol sulfate 90 mcg/actuation 2 puff inhalation Q4H PRN 05/15/20 04/24/22 Unknown Rx aerosol inhaler (Ventolin HFA) shortness of breath or wheezing #18 grams ferrous sulfate 325 mg (65 mg 325 mg PO DAILY #30 tabs 03/14/22 04/24/22 04/23/22 Rx iron) tablet Allergies Allergy/AdvReac Type Severity Reaction Status Date / Time No Known Allergies Allergy Verified 04/24/22 06:27 PFSH Acute PFSH: Medical History No pertinent past medical history Patient denies history of PE/DVT/clotting disorders, lung, liver heart, thyroid, kidney disease, hypertension or diabetes. PCP Dr. Dwyer Surgical History H/O myringotomy As an Family History Denies family history of Colon cancer Ovarian cancer Diabetes Heart disease Hyperlipidemia Breast cancer Hypertension Uterine cancer Thyroid condition Stroke Social History Smoking and tobacco status: light tobacco smoker Quit status (tobacco): has quit using tobacco Alcohol intake: never Additional social history: - Tobacco Use: Patient started smoking at age 16 and smoked 5-6 cigarettes daily until she found out she was and started cutting back. Currently smoking 1-2 cigarettes daily. Alcohol Use: Denies Drug Use: Denies Work/Study Status: Stay at home mother Female Reproductive History: : 4 Vitals/I&O/Wt Last Vital Signs Pulse 71 04/24/22 09:00 Resp 18 04/24/22 06:08 BP 127/76 04/24/22 09:00 O2 Del Method 04/24/22 06:45 04/23/22 04/24/22 04/24/22 22:59 06:59 14:59 Intake Total 15.317 / 15.317 Balance 15.317 / 15.317 Weight last 48 hrs Weight 209 lb Physical Exam Narrative: General: Alert and oriented x3 Eyes: Pupils equal round and reactive to light and accommodation Mouth: Mucous membranes moist, pharynx non-erythematous Cardiac: Regular rate and rhythm without murmurs Lungs: Clear to auscultation bilaterally without wheezes, crackles or rhonchi Abdomen: Soft, non-tender, fundus consistent with gestational age Extremities: Trace edema in the bilateral lower extremities Data : 04/24/22 06:29 A&P Assessment and plan (1) Supervision of normal intrauterine in multigravida: The patient is doing well at this time. We will proceed with induction of labor using IV Pitocin. Patient is currently guillermina every 1 to 3 minutes and is on 17 units of IV Pitocin. heart tones are in a category 1 tracing. The patient is GBS negative. We will proceed with routine care at this time. Attestations Medical Necessity Statement*: The patient will be here for greater than 2 midnights due to routine intrapartum and management of labor and delivery. Coding Level of Care Code Acute Creative Art Therapist for Trish Dubose Diagnoses Supervision of normal intrauterine in multigravida Z34.80
[2022-04-24] MEDS: lactated ringers 1,000 ML 999 ML IV ×2 (09:53→11:58)
--- NOTE | 2022-04-24 10:30 | P.ANESUD_ITS ---
Pre-Anesthetic Update Pre-Anesthetic Assessment: Date of Surgery/Procedure: 04/24/22 Preop Christel gnosis: IUP Proposed Procedure: epidural Any changes to Pre-Anesthetic Assessment?: No Labs Last 48hrs: Short CBC 04/24/22 Range/Units 06:29 WBC 9.3 (4.0-10.0) 10^3/ uL Hgb 10.5 L (11.5-15.3) g/dL Hct 31.9 L (37.0-47.0) % MCV 95.2 (81-99) fl Plt Count 168 (130-400) 10^3/c mm Neut % (Auto) 69.2 % Neut # (Auto) 6.45 (1.8-7.7) 10^3/u L Vitals: Pulse Rate 82 04/24/22 14:05 Pulse Rhythm 04/24/22 06:45 Pulse Strength 3+ Normal 04/24/22 08:00 Respiratory Rate 18 04/24/22 06:08 Respiratory Effort Non-Labored 04/24/22 06:45 Respiratory Depth Normal 04/24/22 06:45 Respiratory Patter n 04/24/22 08:00 Blood Pressure 133/60 04/24/22 14:05 Pulse Oximetry 97 04/24/22 11:08 Oxygen Delivery Me thod 04/24/22 06:45 Exam: Pre-Anes Outpt Exam: alert, oriented x 3, clear to auscultation bilaterally and regular rate & rhythm Cardiac Studies: No Data to Display
[2022-04-24] MEDS: miSOPROStol 200 mcg Tablet 800 MCG PR (13:39)
--- NOTE | 2022-04-24 13:51 | P.PCNOB_ITS ---
Delivery Note: Date of delivery: April 24, 2022 Pre-delivery diagnoses: 1. Intrauterine at 39.5 weeks gestation 2. History of asthma 3. History of kidney stone 4. History of gestational hypertension 5. THC positive in initial UDS with negative follow-up UDS. 6. Abnormal Pap smear 7. Anemia Post-delivery diagnoses: 1. Intrauterine status post spontaneous vaginal delivery at 39.5 weeks gestation 2. History of asthma 3. History of kidney stone 4. History of gestational hypertension 5. THC positive in initial UDS with negative follow-up UDS. 6. Abnormal Pap smear 7. Anemia 8. Delivery of healthy infant female weighing 9 pounds 0 ounces with Apgars 9 and 9 Procedure: Spontaneous vaginal delivery Delivering Physician: Babar Claire MD Estimated blood loss (mL): 300 Findings: 1. Intact placenta with central umbilical cord insertion site 2. Healthy female weighing 9 pounds 0 ounces with Apgars of 9 and 9 3. Moderate bleeding status post IV Pitocin, Cytotec and TXA. Pre-Delivery Course: Mary Carmen Meraz is a 31 year old G4 now P3 status post spontaneous vaginal delivery @ 39.5 weeks by LMP c/w 8 wk US. Preg c/b h/o asthma, h/o kidney stone, h/o gHTN, abnormal pap smear, THC in initial UDS, anemia. The patient presented to labor and delivery for a scheduled elective induction of labor on the morning of 04/24/2022.? The patient had been feeling well.? She was 4 cm dilated upon presentation.? heart tones were in the mid 130s with moderate variability and good accelerations. The patient was started on IV Pitocin for induction of labor. The patient responded well to this and made gradual change. SROM took place at 9:43 AM on 04/24/2022. She received a laboring epidural which gave overall good pain relief. The patient continued to make steady change and was complete by 1310 on 04/24/2022. Delivery: The patient began pushing at 1316 on 04/24/2022. She pushed well and the delivered in the OA position at 1326 on 04/24/2022. The right shoulder was the anterior shoulder and it delivered with ease. The rest of the infant delivered without complication. The 's mouth and nose were bulb suctioned by myself. The was crying and vigorous immediately upon delivery. The was placed on the mother's chest where the nurses were waiting to care for her. The cord was clamped by myself after approximately 1 minute and cut by the infant's father. Cord blood was then obtained. Cord was then drained of blood and traction was placed on umbilical cord. Uterine massage was carried out and the placenta delivered without complication at 1329 on 04/24/2022. The placenta was noted to be intact with a central umbilical cord insertion site. IV Pitocin was bolused. The vaginal wall was inspected and no lacerations were noted. The cervix was inspected and no lacerations were appreciated. The patient did have moderate bleeding. With uterine massage the bleeding slowed down some, however not sufficiently. For this reason Cytotec 800 mcg was placed rectally. The patient continues to have heavier bleeding than desired, so TXA was started. We will continue to monitor her bleeding status. Otherwise currently the mother and infant are doing well. History History History 4 Term 4 0 Miscarriages/Ectopic 0 Living Children 4 Past Pregnancies Del. Date GA/Weeks Outcome Route Wt Inf Gender Labor Lgth Comp. Anesth esia Location 04/24/22 39 live - full term Vaginal 9 lb Female 7 regional [facility] [place] Delivery Date: 04/24/22 Last Updated by: Babar Claire MD Mildly heavy bleeding after delivery needing pit, Cytotec and TXA. A&P Assessment and plan (1) Spontaneous vaginal delivery: Coding Level of Care Code Acute Pediatric Allergist for Chg Fwd Diagnoses Spontaneous vaginal delivery O80
--- NOTE | 2022-04-24 14:10 | ANES.PROC ---
Anesthesia Procedures Procedure/Date: 04/24/22 Epidural: Time Out Performed: Yes Consents Signed: Procedure Consent Consent: requested by attending/covering physician, from patient, risks and benefits reviewed and patient agrees to proceed Lumbar Level: L2-L3 Epidural position: sitting Epidural procedure: sterile prep of area, 1% lidocaine to numb the area, 18 g needle, neg for paresthesia, test dose given, 1.5% xylocaine 1:200k epi (5 cc), 0.2% Ropivacaine bolus ml (5 cc), placed PCEA, no systemic response, sterile dressing applied, L.U.D. no apparent complications and 0.2% Ropiavacaine @ mls/hr (13) Additional Comments: STANLEY at 6 cm at L2-3 after no success at L3-4. patient reported pain decreased from 8 to 4 with subsequent contraction
[2022-04-24] MEDS: oxytocin 30 UNIT/500 ML BAG 999 UNIT IV (14:18)
--- NOTE | 2022-04-24 17:41 | PC.NURSE ---
PT UP TO BATHROOM, VOIDED LARGE AMOUNT AND WAS INSTRUCTED ON PERICARE. PT THEN AMBULATED TO OB10.
[2022-04-24] MEDS: ibuprofen 800 mg tablet PO ×2 (18:06→20:53)
[2022-04-24] MEDS: docusate sodium 100 mg Capsule PO (18:06)
--- NOTE | 2022-04-25 00:22 | PC.NURSE ---
This nurse offered patient medication for 610 pain. Patient states she's okay and doesn't want anything at this time
[2022-04-25 00:23] VITALS: BP 114/55; PULSE 96; RESP 15; O2SAT 98
[2022-04-25 01:40] LABS: Hemoglobin 8.9 g/dL (11.5-15.3); Mean Corpuscular Hemoglobin 31.4 pg (28.0-34.0); Mean Corpuscular Volume 95.4 fl (81-99); Mean Platelet Volume 10.7 fL (7.4-10.4); Platelet Count 144 10^3/cmm (130-400); Red Blood Count 2.83 10^6/uL (4.1-5.3); Red Cell Distribution Width 13.7 % (12.1-15.1); White Blood Count 11.5 10^3/uL (4.0-10.0)
[2022-04-25 04:24] VITALS: BP 117/77; PULSE 67; RESP 15; TEMP 36.6; O2SAT 97
[2022-04-25 06:17] VITALS: RESP 15
[2022-04-25 08:00] VITALS: BP 119/78; PULSE 76; RESP 18; TEMP 36.5
[2022-04-25] MEDS: prenatal vitamin Capsule 1 CAP PO (08:00)
[2022-04-25] MEDS: ibuprofen 800 mg tablet PO ×2 (08:00→15:35)
[2022-04-25] MEDS: docusate sodium 100 mg Capsule PO (08:01)
--- NOTE | 2022-04-25 11:06 | ANE.PACU2 ---
Inpatient post-anesthesia follow up: Airway intact: Yes Vital signs: Temperature 97.7 F Pulse Rate 76 Respiratory Rate 18 Blood Pressure 119/78 Pulse Oximetry 97 Oxygen Delivery Me thod Room Air Oxygen Flow Rate Fraction of Inspir ed Oxygen Hydration adequate: Yes Nausea and vomiting: No Pain level: 1 Mental status: Baseline
--- NOTE | 2022-04-25 14:29 | PM.DCS ---
Discharge Providers Date of Admission: 04/24/22 05:55 Date of Discharge: April 25, 2022 Attending Provider at Admission: Babar Claire MD Attending Provider at Discharge: Babar Claire MD Primary Care Provider: Quoc Dwyer MD Diagnoses at Discharge Discharge Diagnosis (1) Spontaneous vaginal delivery: Details from hospital stay: 1.? Intrauterine status post spontaneous vaginal delivery at 39.5 weeks gestation 2.? History of asthma 3.? History of kidney stone 4.? History of gestational hypertension 5.? THC positive in initial UDS with negative follow-up UDS. 6.? Abnormal Pap smear 7.? Anemia 8.? Delivery of healthy infant female weighing 9 pounds 0 ounces with Apgars 9 and 9 1.? Intrauterine at 39.5 weeks gestation 2.? History of asthma 3.? History of kidney stone 4.? History of gestational hypertension 5.? THC positive in initial UDS with negative follow-up UDS. 6.? Abnormal Pap smear 7.? Anemia? Post-delivery diagnoses: ? Procedure: Spontaneous vaginal delivery? Delivering Physician: Babar Claire MD? Estimated blood loss (mL): 300? Findings: 1.? Intact placenta with central umbilical cord insertion site 2.? Healthy infant female weighing 9 pounds 0 ounces with Apgars of 9 and 9 3.? Moderate bleeding status post IV Pitocin, Cytotec and TXA. Pre-Delivery Course:?? Delivery:?? The patient began pushing at 1316 on 04/24/2022.? She pushed well and the delivered in the OA position at 1326 on 04/24/2022.? The right shoulder was the anterior shoulder and it delivered with ease.? The rest of the infant delivered without complication.? The infant's mouth and nose were bulb suctioned by myself.? The infant was crying and vigorous immediately upon delivery.? The was placed on the mother's chest where the nurses were waiting to care for her.? The cord was clamped by myself after approximately 1 minute and cut by the 's father.? Cord blood was then obtained.? Cord was then drained of blood and traction was placed on umbilical cord.? Uterine massage was carried out and the placenta delivered without complication at 1329 on 04/24/2022.? The placenta was noted to be intact with a central umbilical cord insertion site.? IV Pitocin was bolused.? The vaginal wall was inspected and no lacerations were noted.? The cervix was inspected and no lacerations were appreciated.? The patient did have moderate bleeding.? With uterine massage the bleeding slowed down some, however not sufficiently.? For this reason Cytotec 800 mcg was placed rectally.? The patient continues to have heavier bleeding than desired, so TXA was started.? We will continue to monitor her bleeding status.? Otherwise currently the mother and infant are doing well. Status: Acute Reason for Visit Reason for Visit: EDC 04.26.22 Brief History: Mary Carmen Meraz is a 31 year old G4 now P4 status post spontaneous vaginal delivery @ 39.5 weeks by LMP c/w 8 wk US. Preg c/b h/o asthma, h/o kidney stone, h/o gHTN, abnormal pap smear, THC in initial UDS, anemia. The patient presented to labor and delivery for a scheduled elective induction of labor on the morning of 04/24/2022.? The patient had been feeling well.? She was 4 cm dilated upon presentation.? heart tones were in the mid 130s with moderate variability and good accelerations. Hospital Course Hospital Course The patient was started on IV Pitocin for induction of labor.? The patient responded well to this and made gradual change.? SROM took place at 9:43 AM on 04/24/2022.? She received a laboring epidural which gave overall good pain relief.? The patient continued to make steady change and was complete by 1310 on 04/24/2022. The patient began pushing at 1316 on 04/24/2022.? She pushed well and the delivered in the OA position at 1326 on 04/24/2022.? The right shoulder was the anterior shoulder and it delivered with ease.? The rest of the infant delivered without complication.? The infant's mouth and nose were bulb suctioned by myself.? The infant was crying and vigorous immediately upon delivery.? The infant was placed on the mother's chest where the nurses were waiting to care for her.? The cord was clamped by myself after approximately 1 minute and cut by the infant's father.? Cord blood was then obtained.? Cord was then drained of blood and traction was placed on umbilical cord.? Uterine massage was carried out and the placenta delivered without complication at 1329 on 04/24/2022.? The placenta was noted to be intact with a central umbilical cord insertion site.? IV Pitocin was bolused.? The vaginal wall was inspected and no lacerations were noted.? The cervix was inspected and no lacerations were appreciated.? The patient did have moderate bleeding.? With uterine massage the bleeding slowed down some, however not sufficiently.? For this reason Cytotec 800 mcg was placed rectally.? The patient continues to have heavier bleeding than desired, so TXA was started.? We will continue to monitor her bleeding status.? Otherwise currently the mother and are doing well. the patient is doing well. Her bleeding has decreased well. She is ambulating, voiding, passing gas and tolerating food by mouth. Her pain is well controlled. Routine discharge instructions were discussed. We will continue with routine care at this time. All questions were answered. Physical Exam Narrative: General: Alert and oriented x3 Cardiac: Regular rate and rhythm without murmurs Lungs: Clear to auscultation bilaterally without wheezes, crackles or rhonchi Abdomen: Soft, mild tenderness over uterus. The uterus is firm and 2 cm below the umbilicus. Extremities: Trace edema in the bilateral lower extremities Urinary Catheter Management: Carrillo: Cath Placed During This Visit: yes, but has since been removed by the nurse Reason for Continuing Indwelling Catheter: Other Urinary Catheter Date of Insertion: 04/24/22 Urinary Catheter Time of Insertion: 11:25 Date Urinary Catheter Removed: 04/24/22 Time Urinary Catheter Discontinued: 13:15 Discharge Data Studies Completed and Pending Laboratory Results WBC 11.5 10^3/uL (4.0-10.0) H 04/25/22 01:34 RBC 2.83 10^6/uL (4.1-5.3) L 04/25/22 01:34 Hgb 8.9 g/dL (11.5-15.3) L 04/25/22 01:34 Hct 27.0 % (37.0-47.0) L 04/25/22 01:34 MCV 95.4 fl (81-99) 04/25/22 01:34 MCH 31.4 pg (28.0-34.0) 04/25/22 01:34 MCHC 33.0 g/dL (30.0-36.0) 04/25/22 01:34 RDW 13.7 % (12.1-15.1) 04/25/22 01:34 Plt Count 144 10^3/cmm (130-400) 04/25/22 01:34 MPV 10.7 fL (7.4-10.4) H 04/25/22 01:34 Neut % (Auto) 69.2 % 04/24/22 06:29 Lymph % (Auto) 19.3 % 04/24/22 06:29 [place] % (Auto) 8.4 % 04/24/22 06:29 Eos % (Auto) 1.0 % 04/24/22 06:29 Baso % (Auto) 0.5 % 04/24/22 06:29 Neut # (Auto) 6.45 10^3/uL (1.8-7.7) 04/24/22 06:29 Lymph # (Auto) 1.8 10^3/uL (0.8-4.8) 04/24/22 06:29 [place] # (Auto) 0.8 10^3/uL (0.2-0.9) 04/24/22 06:29 Eos # (Auto) 0.1 10^3/uL (0.0-0.8) 04/24/22 06:29 Baso # (Auto) 0.1 10^3/uL (0.0-0.1) 04/24/22 06:29 Nucleated RBC % (auto) 0 % 04/24/22 06:29 Nucleated RBCs # 0.0 /100WBC 04/24/22 06:29 Vitals Last Vital Signs Temp 97.7 F 04/25/22 08:00 Pulse 76 04/25/22 08:00 Resp 18 04/25/22 08:00 BP 119/78 04/25/22 08:00 Pulse Ox 97 04/25/22 04:24 O2 Del Method 04/25/22 04:24 Discharge Plan Discharge Patient Disposition: Home Condition: Good Prescriptions: New ibuprofen 800 mg Tablet 800 mg PO TID Qty: 30 0RF -U 106.5-1 mg Capsule 1 cap PO DAILY Qty: 30 2RF Continued albuterol sulfate [Ventolin HFA] 90 mcg/actuation HFA aerosol inhaler 2 puff INHALATION Q4H PRN (Reason: shortness of breath or wheezing) Qty: 18 0RF Changed ferrous sulfate 325 mg (65 mg iron) tablet 325 mg PO BIDWM Qty: 60 3RF Discharge Orders: Discharge Order (Routine); Ordered 04/25/22 Ordered By: Babar Claire Referrals: Babar Claire MD [Physician] - 6 Weeks Discharge Diet: Regular Discharge Activity: Resume usual activity Patient Instructions: Opioid Safety Activity Restrictions/Additional Instructions: Nothing per vagina for 6 weeks. I would recommend showers instead of baths to decrease risk for infection. Discharge Attestations Time Spent in Discharge Care*: greater than 30 min Quality Metrics Clinical Quality Measures [ No reported AMI, CVA or VTE this stay] Coding Level of Care Code Acute Chg FW DC note Diagnoses Spontaneous vaginal delivery O80
[2022-04-25 15:30] VITALS: BP 116/79; PULSE 76; RESP 18; TEMP 36.7
[2022-04-25 16:45] VITALS: BP 116/79; PULSE 76; RESP 18; TEMP 36.7
== END 2022-04-25 16:45 | disposition home or self-care (01) | DRG 807 ==
PROVIDERS: Admitting Provider Family Medicine; PCP Family Medicine; Visit Provider Family Medicine
DX: O99.52 Diseases of the respiratory system complicating childbirth (principal); Z37.0 Single live birth; J45.909 Unspecified asthma, uncomplicated; O99.02 Anemia complicating childbirth; D64.9 Anemia, unspecified; O72.1 Other immediate postpartum hemorrhage; O99.334 Smoking (tobacco) complicating childbirth; F17.210 Nicotine dependence, cigarettes, uncomplicated; F12.91 Cannabis use, unspecified, in remission; Z3A.39 39 weeks gestation of pregnancy; Z87.59 Personal history of other complications of pregnancy, childbirth and the puerperium; Z87.442 Personal history of urinary calculi
CPT/HCPCS: 36415; 51702; 59025; 59409; 85025; 85027; 99211; J2590; J2795; J7120; J7121

== ENCOUNTER → 2022-09-12 15:00 | Outpatient (BNVA) | payer BC, MEDICAID, SELFPAY | PROVIDERS: PCP Family Medicine; Visit Provider Obstetrics & Gynecology | DX: R87.619 Unspecified abnormal cytological findings in specimens from cervix uteri (principal) | CPT/HCPCS: 87624 ==

== ENCOUNTER → 2022-12-01 08:15 | Outpatient (BNVA) | payer BC, MEDICAID, SELFPAY | PROVIDERS: PCP Family Medicine; Visit Provider Obstetrics & Gynecology | DX: Z01.818 Encounter for other preprocedural examination (principal) | CPT/HCPCS: 81025; 88305; 88342 ==

== ENCOUNTER → 2023-03-31 09:42 | Outpatient (BNVA) | payer BC, MEDICAID, SELFPAY | PROVIDERS: PCP Family Medicine; Visit Provider Family Medicine | DX: R30.0 Dysuria (principal) | CPT/HCPCS: 81000 ==

== ENCOUNTER → 2024-06-24 11:47 | Outpatient (BNVA) | payer BC, MEDICAID, SELFPAY | PROVIDERS: PCP Family Medicine; Visit Provider Family Medicine | DX: Z12.83 Encounter for screening for malignant neoplasm of skin (principal) | CPT/HCPCS: 88305; 88312 ==